=== PATIENT | female | born 2000 | race Caucasian/White ===

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

== ENCOUNTER 2022-08-09 15:42 | Emergency (ER) | payer OTHER, SELFPAY ==
--- NOTE | ~2022-08-09 | XR_ITS ---
EXAMINATION: XR chest 2V Exam Date/Time: 08/09/2022 17:47 CDT HISTORY: fever Comparison: 07/31/2021. RESULT: Lines, tubes, and devices: None. Lungs and pleura: No focal consolidation. Low volumes with crowding in the lateral view. Cardiomediastinal silhouette: Stable. Other: No acute osseous or upper abdominal finding. IMPRESSION: No acute cardiopulmonary process. Reviewed, dictated and finalized at location K.
[2022-08-09 15:44] VITALS: BP 129/68; PULSE 100; RESP 15; TEMP 36.9; O2SAT 100
--- NOTE | 2022-08-09 16:19 | ED.FEVER ---
HPI - Fever General Chief Complaint: Fever <Alisha Cleary PA-C - Last Filed: 08/09/22 19:37> Stated Complaint: fever <Alisha Cleary PA-C - Last Filed: 08/09/22 19:37> Time Seen by Provider: 08/09/22 16:04 <Alisha Cleary PA-C - Last Filed: 08/09/22 19:37> History of Present Illness HPI Narrative: 21-year-old female with history of chronic tonsillitis reports for evaluation of a fever intermittently for the past 4 weeks with general malaise. Patient reports she has a ~100.8 fever daily taken with a temporal thermometer, then take takes Motrin with resolution of fever. She states she has not had a fever in the past 3 to 4 days, then developed a fever of 102 this morning. She has not taken anything for her fever and is afebrile now. She reports some nasal congestion which she attributes to allergies. She denies abdominal pain, urinary complaints, cough, shortness of breath, headache, neck pain, back pain, rash, n/v/d, joint pain, chills, vaginal discharge or concern for STD, ear pain, sore throat, night sweats or weight loss, bug bites or lesions. LMP 07/17. <Alisha Cleary PA-C - Last Filed: 08/09/22 19:37> Related Data Allergies/Adverse Reactions: Allergies Allergy/AdvReac Type Severity Reaction Status Date / Time No Known Allergies Allergy Verified 08/09/22 15:47 <Alisha Cleary PA-C - Last Filed: 08/09/22 19:37> Review of Systems Review of Systems: CONSTITUTIONAL: See HPI EYES: Denies visual changes, redness, or discharge. ENT: Denies rhinorrhea, congestion, sore throat, or otalgia. CARDIOVASCULAR: Denies chest pain, palpitations, or edema. RESPIRATORY: Denies cough or dyspnea. GASTROINTESTINAL: Denies abdominal pain, nausea, vomiting, or diarrhea. GENITOURINARY: Denies dysuria or hematuria. SKIN: Denies rash or itching. MUSCULOSKELETAL: Denies back pain, joint pain, or myalgia. NEUROLOGIC: Denies headache, numbness, dizziness, or weakness. PSYCHIATRIC: Denies anxiety or depression. <Alisha Cleary PA-C - Last Filed: 08/09/22 19:37> [facility] Past Medical History Medical History: Medical History ADHD Anxiety <Alisha Cleary PA-C - Last Filed: 08/09/22 19:37> Social History Social History: Social History Smoking status: Current every day smoker Tobacco type: e-cigarettes/vaping Second hand tobacco smoke exposure: No Additional smoking assessment comments: HAS VAPED FOR 2 YEARS Alcohol intake: never Substance use: current Substance use type: marijuana Other substance usage details: 1-2X/MONTH Living arrangements: with roommate(s) Additional living arrangements comments: LIVES IN [place] Spiritual care concerns: Yes <Alisha Cleary PA-C - Last Filed: 08/09/22 19:37> Exam Narrative: GENERAL: Well-appearing, well-nourished, and in no acute distress. Patient resting comfortably in exam bed. She is pleasant and conversational. HEAD: Normocephalic, atraumatic. EYES: PERRLA and EOMI. ENT: Nares clear, no rhinorrhea or epistaxis. Mucous membranes moist. Oropharynx without tonsillar hypertrophy exudate or other lesions. Bilateral TMs pearly mary nonbulging. No tenderness over maxillary or frontal sinuses NECK: Supple. No adenopathy or masses. No nuchal rigidity. Negative Kernig's and Brudzinski's CHEST: Clear to auscultation. No respiratory distress. No wheezes rales or rhonchi HEART: Regular rate and rhythm. No murmur heard. Normal peripheral pulses. ABDOMEN: Soft, nontender, nondistended, normal active bowel sounds. EXTREMITIES: Normal range of motion. No edema. Strength 5/5 in BUE and BLE. SKIN: Warm, dry, no rash. NEURO: No focal deficits. Alert and oriented x3. PSYCH: Normal mood and affect. <Alisha Cleary PA-C - Last Filed: 08/09/22 19:37> Course AUTOMATION ENGINEER/PA Physician Supervision This visit was performe
[2022-08-09 16:50] LABS: Basophils Percent Auto 0.3 % (0.2-1.2); Eosinophils Absolute Auto 0.2 K/mm3 (0-0.3); Eosinophils Percent Auto 1.4 % (0-4.4); Hematocrit 38.9 % (37.0-47.0); Hemoglobin 11.8 g/dL (12.0-15.0); Immature Granulocyte Absolute 0.03 K/mm3 (0.00-0.031); Immature Granulocyte Percent A 0.3 % (0-0.5); Lymphocytes Absolute Auto 1.95 K/mm3 (0.9-3.2); Mean Corpuscular HGB Conc 30.3 g/dl (32-36); Mean Corpuscular Hemoglobin 23.1 pg (26-34); Mean Corpuscular Volume 76.3 fl (80-100); Mean Platelet Volume 9.3 fl (7.4-10.4); Monocytes Percent Auto 8.6 % (2.6-8.5); Neutrophils Absolute Auto 8.3 K/mm3 (1.3-6.7); Neutrophils Percent Auto 72.4 % (45.5-73.1); Platelet Count Result 421 k/mm3 (150-375); Red Cell Distribution Width 15.5 % (11.5-14.5); White Blood Count 11.5 K/mm3 (4.5-10.0)
[2022-08-09 17:01] LABS: Alanine Aminotransferase 18 U/L (6-35); Albumin Level 4.5 g/dL (3.7-5.6); Alkaline Phosphatase 64 U/L (45-116); Anion Gap 6 mmol/L (8-16); Aspartate Amino Transferase 20 U/L (14-36); Bilirubin,Total 0.4 mg/dL (0.2-1.3); Blood Urea Nitrogen 10 mg/dL (8-21); Calcium 9.2 mg/dL (8.9-10.7); Carbon Dioxide 29 mmol/L (22-30); Chloride 104 mmol/L (98-107); Estimated CRCL calculation 138 ml/min; Estimated Glomerular Filt Rate > 60; Glucose 93 mg/dL (65-110); Lipase 31 U/L (23-300); Sodium 139 mmol/L (134-143)
[2022-08-09 17:05] LABS: Monoscreen Negative (Negative); Negative Monotest Control Negative (Negative); Positive Monotest Control Positive (Positive)
[2022-08-09 17:17] LABS: Strep Group A RT-PCR NOT DETECTED (Negative)
[2022-08-09 17:27] LABS: Influenza A QL RT-PCR Negative (Negative); Influenza B QL RT-PCR Negative (Negative); SARS-CoV-2 RNA PCR Negative (Negative)
[2022-08-09 19:11] LABS: Appearance Urine Clear (Clear); Bilirubin Urine Negative (Negative); Blood Urine Negative (Negative); Color Urine Yellow (Yellow); Glucose Urine UA Negative (Negative); Ketones Urine Trace mg/dL (Negative); Leukocyte Esterase Ur Negative LEU/UL (Negative); Nitrate Urine Negative (Negative); Protein Urine Negative (Negative); Specific Grav Ur 1.027 (1.001-1.035); Urobilinogen Urine 0.2 mg/dL (<2.0); pH Urine 5.5 (5.0-9.0)
[2022-08-09 19:15] VITALS: BP 111/73; PULSE 96; RESP 16; TEMP 36.7; O2SAT 100
[2022-08-09 19:23] LABS: Add Urine Microscopic? NO
== END 2022-08-09 19:46 | disposition home or self-care (01) ==
PROVIDERS: Emergency Provider Physician Assistant
DX: R53.81 Other malaise (principal); Z20.822 Contact with and (suspected) exposure to COVID-19; F17.290 Nicotine dependence, other tobacco product, uncomplicated; F41.9 Anxiety disorder, unspecified; F90.9 Attention-deficit hyperactivity disorder, unspecified type
CPT/HCPCS: 36415; 71046; 80053; 81003; 81025; 83690; 85025; 86308; 87636; 87651; 99283